=== PATIENT | female | born 1960 | race Caucasian/White ===

== ENCOUNTER 2023-07-29 05:22 | Day surgery (SDC) | payer BC ==
[2023-07-20 10:30] LABS: BASOPHILS % (AUTO) 0.4 % (0-1); EOSINOPHILS # (AUTO) 0.2 X10'3 (0-0.9); LYMPHOCYTES # (AUTO) 1.9 X10'3 (1.1-4.8); LYMPHOCYTES % (AUTO) 23.8 % (21-51); MEAN CORPUSCULAR HEMOGLOBIN 31.2 PG (27.0-31.0); MEAN CORPUSCULAR HGB CONC 33.1 g/dL (33.0-36.5); MEAN CORPUSCULAR VOLUME 94.2 FL (78-98); MEAN PLATELET VOLUME 7.4 FL (7.4-10.4); MONOCYTES # (AUTO) 0.6 X10'3 (0-0.9); MONOCYTES % (AUTO) 7.9 % (2-12); NEUTROPHILS # (AUTO) 5.3 X10'3 (1.8-7.7); NEUTROPHILS % (AUTO) 65.9 % (42-75); PRE OP HEMATOCRIT 48.3 % (35.0-45.0); PRE OP PLATELET COUNT 251 X10'3 (140-440); PRE OP WHITE BLOOD COUNT 8.1 10'3 (4.8-10.8); RED BLOOD COUNT 5.13 X10'6 (4.20-5.60); RED CELL DISTRIBUTION WIDTH 12.6 % (11.5-14.5)
[2023-07-20 12:30] LABS: ALBUMIN 3.7 G/DL (3.4-5.0); ALBUMIN/GLOBULIN RATIO 1.1 (1.1-1.5); ALKALINE PHOSPHATASE 82 IU/L (46-116); BLOOD UREA NITROGEN 14 MG/DL (7-18); CALCIUM 9.1 MG/DL (8.5-10.1); CHLORIDE 106 MMOL/L (99-107); CREATININE 0.56 MG/DL (0.40-0.90); PRE OP ALT 24 U/L (30-65); PRE OP ANION GAP 9 (8-16); PRE OP AST 12 U/L (10-37); PRE OP BILIRUB, TOTAL 0.8 MG/DL (0.0-1.0); PRE OP GLUCOSE 96 MG/DL (70-104); PRE OP POTASSIUM 4.3 MMOL/L (3.4-5.1); PRE OP SODIUM 142 MMOL/L (135-145); TOTAL CARBON DIOXIDE 26.7 MMOL/L (24-32); TOTAL PROTEIN 7.1 G/DL (6.4-8.2); eGFR > 90 ML/MIN
[~2023-07-29] VITALS: Ht 170.2 cm; Wt 90.6 kg
[2023-07-29] VITALS (11 sets, daily range): BP systolic 98–154; BP diastolic 55–91; PULSE 16–97; RESP 12–18; TEMP 97.7; O2SAT 66–100
[~2023-07-29 05:22] MED LIST: ESOM40CA43 PO; MULT-1085 PO
[2023-07-29] MEDS: famotidine 20mg tablet PO ONE (06:38)
[2023-07-29] MEDS: ringers solution, lacted 1,000 ML IV SCH (06:39)
[2023-07-29] MEDS: cefazolin 2gm/D5W 100mL 100 ML IV ONE (06:39)
[2023-07-29] MEDS ORDERED: BUPIVAcaine 2.5mg/ml inj 50ml vial (contains preservative) ONE (06:54)
[2023-07-29] MEDS ORDERED: cloNIDine hcl/PF 100mcg/ml inj ONE (07:13)
[2023-07-29] MEDS ORDERED: sevoflurane 250ml liquid IH ONE (07:18)
[2023-07-29] MEDS ORDERED: midazolam 1 mg/ML 2ml injection ONE (07:25)
[2023-07-29] MEDS ORDERED: fentaNYL /PF 50mcg/ml 5ml ampule ONE (07:29)
[2023-07-29] MEDS ORDERED: ondansetron/PF 4mg/2ml inj ONE (08:00)
[2023-07-29] MEDS ORDERED: dexamethasone sod phosphate 4mg/ml inj. ONE (08:00)
[2023-07-29] MEDS ORDERED: ROPIVAcaine 0.5% (5mg/ml) 30ml vial ONE (08:00)
[2023-07-29] MEDS ORDERED: LIDOcaine 2% (20mg/ml) 5ml vial ONE (08:00)
[2023-07-29] MEDS ORDERED: propofol inj 20 ML IV ONE (08:00)
[2023-07-29] MEDS: bacitracin 15gm ointment TP ONE (08:31)
[2023-07-29] MEDS ORDERED: 0.9 % SODIUM CHLORIDE 10 ML VIAL ONE (09:00)
[2023-07-29] MEDS ORDERED: ePHEDrine 50MG/ML INJ. ONE (09:00)
[2023-07-29] MEDS ORDERED: morphine 2 MG/ML inj. syringe IV PRN (10:25)
[2023-07-29] MEDS ORDERED: ringers solution, lacted 1,000 ML IV SCH (10:25)
[2023-07-29] MEDS ORDERED: proCHLORperazine 10 MG/2 ml inj IV PRN (10:25)
[2023-07-29] MEDS ORDERED: acetaminophen 1,000mg/100ml IV 100 ML IV ONE (10:25)
[2023-07-29] MEDS ORDERED: ondansetron/PF 4mg/2ml inj IV PRN (10:25)
[2023-07-29] MEDS ORDERED: labetalol 20mg/4ml (5mg/ml) syringe IV PRN (10:25)
[2023-07-29] MEDS ORDERED: hydrALAZINE 20mg/ml inj. IV PRN (10:25)
[2023-07-29] MEDS ORDERED: morphine 4 MG/ML inj SYRINge IV PRN (10:25)
[2023-07-29] MEDS ORDERED: meperidine/PF 25mg/ml syringe IV PRN ×3 (10:25)
== END 2023-07-29 10:27 | disposition home or self-care (01) ==
LOC: PAS 05:22
PROVIDERS: ATTEND Podiatrist Foot & Ankle Surgery
DX: M20.42 Other hammer toe(s) (acquired), left foot (principal); G57.62 Lesion of plantar nerve, left lower limb; M20.12 Hallux valgus (acquired), left foot; M20.22 Hallux rigidus, left foot; M24.575 Contracture, left foot; G89.18 Other acute postprocedural pain; G47.33 Obstructive sleep apnea (adult) (pediatric); E66.9 Obesity, unspecified; K21.9 Gastro-esophageal reflux disease without esophagitis; F17.200 Nicotine dependence, unspecified, uncomplicated; Z79.82 Long term (current) use of aspirin; Z79.891 Long term (current) use of opiate analgesic; Z79.899 Other long term (current) drug therapy; Z96.642 Presence of left artificial hip joint; Z68.29 Body mass index [BMI] 29.0-29.9, adult; Z88.1 Allergy status to other antibiotic agents
CPT/HCPCS: 28080; 28270; 28285; 28750; 36415; 64450; 73620; 80053; 82948; 85025; A6223; C1713; J0690; J0735; J1100; J2250; J2405; J2704; J2795; J3010; J3490; J7030; J7120; Z7506; Z7508; Z7512; 76000; A4215; A4618; A6449; A7000